=== PATIENT | male | born 2005 | race Caucasian/White ===

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

== ENCOUNTER 2024-06-13 09:50 | Emergency (ER) | payer BC, SELFPAY ==
[2024-06-13 09:53] VITALS: BP 119/63; PULSE 100; RESP 16; TEMP 36.4; O2SAT 100
[2024-06-13] MEDS: KETOROLAC 15 MG/ML VIAL (*BKC) IV PUSH (10:38)
[2024-06-13] MEDS: LACTATED RINGERS 1,000 ML 999 ML IV CONT (10:38)
[2024-06-13] MEDS: ONDANSETRON INJ 4 MG/2 ML VIAL IV PUSH (10:38)
[2024-06-13 10:53] LABS: Alanine Aminotransferase 13 U/L (6-50); Albumin Level 5.2 g/dL (3.5-5.1); Alkaline Phosphatase 63 U/L (38-126); Anion Gap 10 mmol/L (4-12); Aspartate Amino Transferase 19 U/L (17-59); Bilirubin,Total 1.2 mg/dL (0.2-1.3); Blood Urea Nitrogen 26 mg/dL (9-20); Calcium 10.1 mg/dL (8.4-10.2); Carbon Dioxide 22 mmol/L (22-30); Chloride 107 mmol/L (98-107); Estimated Glomerular Filt Rate > 60; Glucose 125 mg/dL (65-110); Lipase 32 U/L (23-300); Potassium 3.8 mmol/L (3.4-5.0); Sodium 139 mmol/L (137-145)
[2024-06-13] MEDS: diphenhydrAMINE HCl INJ 50 MG/ML VIAL 25 MG IV PUSH (11:07)
--- NOTE | 2024-06-13 11:12 | ED_ITS ---
HPI - Nausea/Vomiting/Diarrhea General Chief complaint: Nausea/Vomiting/Diarrhea Stated complaint: N/V/D, abd pain Time Seen by Provider: 06/13/24 10:21 Source: patient and RN notes reviewed Mode of arrival: ambulatory Limitations: no limitations History of Present Illness HPI Narrative: THis is a 19 year old male who presents for evaluation of nausea, vomiting, diarrhea and abdominal pain. He reports 2 days ago he developed fatigue, sore throat and body aches so he went to urgent care. He was diagnosed with covid at that time. He states he was feeling better but last night he developed vomiting, diarrhea and abdominal pain. He reports multiple episodes of bilious vomiting and watery nonbloody diarrhea. HE reports constant generalized abdominal pain. He had a fever 2 days ago. He denies sick contacts. MD elicited complaint: nausea, vomiting, diarrhea and abdominal pain Onset (ago): day(s) (1) Description of vomiting: bilious Description of diarrhea: watery Associated nausea: Yes Associated abdominal pain: Yes Location of pain: diffuse Pain consistency: constant Quality: cramping Exacerbating factors: none Relieving factors: none Related Data Allergies Allergy/AdvReac Type Severity Reaction Status Date / Time peanut Allergy Anaphylaxis Verified 06/13/24 09:52 Review of Systems 2 Review of Systems: All systems reviewed & are unremarkable except as noted in HPI and below Constitutional: Constitutional: Reports fatigue and Reports fever(s) ENT: Reports sore throat Respiratory: Respiratory: Denies cough and Denies dyspnea Gastrointestinal: Gastrointestinal: Reports diarrhea, Reports nausea and Reports vomiting PMFSH Past Medical History Medical History (Updated 06/13/24 @ 12:12 by Gladys Maynard MD) Patient denies medical problems Surgical History Surgical History (Updated 06/13/24 @ 11:16 by Gladys Maynard MD) No pertinent past surgical history Exam 2 Const: General: no acute distress and alert Nutritional Appearance: well nourished Orientation/consciousness: patient oriented x3 HENMT: Head: normal to inspection Eyes: EOM: EOMs intact bilaterally Resp: Effort & Inspection: normal respiratory effort Auscultation: clear to auscultation bilaterally Cardio: Rate: regular rate Rhythm: regular rhythm Heart sounds: no murmurs GI: GI Palp: Yes Soft to palpation, Yes Tenderness to palpation present (GI), No Guarding due to palpation present (GI), No Rigid due to palpation and No Hernia present Auscultation: normal bowel sounds Skin: General skin exam: normal color Rashes: no rashes Wounds: no wounds Neuro: General: patient oriented x3 and moves all extremities Cranial nerves: Yes Nystagmus not present Extrem: General: normal to inspection Psych: Mental Status: mental status grossly normal Affect: normal affect Attitude: cooperative Course Reevaluation(s) Reevaluation #1: I was called to bedside because patient developed hives to left arm at IV site after receiving zofran and toradol. PAtient denies itching or trouble breathing. Date: 06/13/24 Time: 11:16 Reevaluation #2: Patient states he feels better. He denies any abdominal pain so he declined CT understanding that without it I can not rule out appendicitis. Patient abdominal exam is normal now. He does not have any tenderness so I cancelled CT. He was given return precautions. Date: 06/13/24 Time: 12:11 Vital Signs Vital signs: Vital Signs Temperature 97.5 F L 06/13/24 09:53 Pulse Rate 100 06/13/24 09:53 Respiratory Rate 16 06/13/24 09:53 Blood Pressure 119/63 06/13/24 09:53 Pulse Oximetry 100 06/13/24 09:53 Oxygen Delivery Room Air 06/13/24 09:53 Temperature 97.8 F 06/13/24 12:21 Pulse Rate 84 06/13/24 12:21 Respiratory Rate 16 06/13/24 12:21 Blood Pressure 116/72 06/13/24 12:21 Pulse Oximetry 100 06/13/24 12:21 Oxygen Delivery Room Air 06/13/24 09:53 MDM - Nausea/Vomiting/Diarrhea Differential Diagnosis Differential diagnosis: Likely traveler's diarrhea, food poisoning, gastroenteritis and dehydration Lab Data Attestation: I reviewed the patient's lab results. 06/13/24 10:34 06/13/24 10:34 Labs: Lab Results 06/13/24 06/13/24 06/13/24 Range/Units 10:34 10:51 11:15 WBC 9.2 (4.5-10.0) K/mm3 RBC 5.17 (4.6-6.20) M/mm3 Hgb 15.9 (14.0-18.0) g/dL Hct 43.7 (42.0-52.0) % MCV 84.5 (80-100) fl MCH 30.8 (26-34) pg MCHC 36.4 H (32-36) g/dl RDW 12.5 (11.5-14.5) % Plt Count 237 (150-375) k/mm3 MPV 8.6 (7.4-10.4) fl Immature Gran % (Auto) 0.2 (0-0.5) % Neut % (Auto) 91.4 H (45.5-73.1) % Lymph % (Auto) 3.7 L (18.3-44.2) % [place] % (Auto) 4.2 (2.6-8.5) % Eos % (Auto) 0.3 (0-4.4) % Baso % (Auto) 0.2 (0.2-1.2) % Lymph # (Auto) 0.34 L (0.9-3.2) K/mm3 [place] # (Auto) 0.4 (0.1-0.6) K/mm3 Eos # (Auto) 0.0 (0-0.3) K/mm3 Baso # (Auto) 0.0 (0.0-0.1) K/mm3 Abs Immat Gran (auto) 0.02 (0.00-0.031) K/mm3 Absolute Neuts (auto) 8.4 H (1.3-6.7) K/mm3 Absolute Nucleated RBC 0.000 (0.0-0.012) K/mm3 Nucleated RBC % 0.0 (0.0-0.2) % Sodium 139 (137-145) mmol/L Potassium 3.8 (3.4-5.0) mmol/L Chloride 107 (98-107) mmol/L Carbon Dioxide 22 (22-30) mmol/L Anion Gap 10 (4-12) mmol/L BUN 26 H (9-20) mg/dL Creatinine 0.90 (0.7-1.3) mg/dL Estim Creat Clear Calc Not Reportable Estimated GFR > 60 (59 - ) Glucose 125 H (65-110) mg/dL Calcium 10.1 (8.4-10.2) mg/dL Total Bilirubin 1.2 (0.2-1.3) mg/dL AST 19 (17-59) U/L ALT 13 (6-50) U/L Alkaline Phosphatase 63 (38-126) U/L Total Protein 9.0 H (6.3-8.2) g/dL Albumin 5.2 H (3.5-5.1) g/dL Lipase 32 (23-300) U/L Urine Color Dark yellow (Yellow) Urine Appearance Clear (Clear) Urine pH 6.5 (5.0-9.0) Ur Specific Josephine 1.032 (1.001-1.035) Urine Protein 1+ H (Negative) mg/dL Urine Glucose (UA) Negative (Negative) mg/dL Urine Ketones 3+ H (Negative) mg/dL Ur Blood (Man) Negative (Negative) Urine Nitrate Negative (Negative) Urine Bilirubin Negative (Negative) Urine Urobilinogen 1.0 (<2.0) mg/dL Leukocyte Esterase Rfl Negative (Negative) JAGDEEP/UL Urine RBC 3-5 H (0-2) /hpf Urine WBC 0-5 (0-3) /hpf Ur Squamous Epith Cells None seen (Few) /hpf Urine Bacteria None seen /hpf Urine Casts 3-5 Influenza A (RT-PCR) Negative (Negative) Influenza B (RT-PCR) Negative (Negative) Discharge Plan Discharge Clinical Impression: Gastroenteritis, Dehydration Patient Disposition: Home, Self-Care Condition: Improved Instructions: Antibiotic Form, Gastroenteritis (ED) Additional Instructions: Stay hydrated. IF you developed bloody diarrhea, fever or right lower abdominal pain return to ER Patient Language: Lao Prescriptions: New ondansetron 4 mg tablet,disintegrating 4 mg PO Q8H PRN (Reason: nausea and vomiting) Qty: 20 0RF Follow-up/Referrals: PHYSICIAN,SALICYLIC ACID BLENDER [Primary Care Provider] - Gus Pride MD [Physician] -
[2024-06-13 11:25] LABS: Basophils Percent Auto 0.2 % (0.2-1.2); Eosinophils Percent Auto 0.3 % (0-4.4); Hematocrit 43.7 % (42.0-52.0); Hemoglobin 15.9 g/dL (14.0-18.0); Immature Granulocyte Absolute 0.02 K/mm3 (0.00-0.031); Immature Granulocyte Percent A 0.2 % (0-0.5); Lymphocytes Absolute Auto 0.34 K/mm3 (0.9-3.2); Lymphocytes Percent Auto 3.7 % (18.3-44.2); Mean Corpuscular HGB Conc 36.4 g/dl (32-36); Mean Corpuscular Hemoglobin 30.8 pg (26-34); Mean Corpuscular Volume 84.5 fl (80-100); Mean Platelet Volume 8.6 fl (7.4-10.4); Monocytes Absolute Auto 0.4 K/mm3 (0.1-0.6); Monocytes Percent Auto 4.2 % (2.6-8.5); Neutrophils Absolute Auto 8.4 K/mm3 (1.3-6.7); Neutrophils Percent Auto 91.4 % (45.5-73.1); Platelet Count Result 237 k/mm3 (150-375); Red Blood Count 5.17 M/mm3 (4.6-6.20); Red Cell Distribution Width 12.5 % (11.5-14.5); White Blood Count 9.2 K/mm3 (4.5-10.0)
[2024-06-13 11:45] LABS: Influenza A QL RT-PCR Negative (Negative); Influenza B QL RT-PCR Negative (Negative)
[2024-06-13 11:47] LABS: Add Urine Microscopic? YES; Appearance Urine Clear (Clear); Bacteria Urine None Seen /hpf; Bilirubin Urine Negative (Negative); Blood Urine Negative (Negative); Color Urine Dark Yellow (Yellow); Glucose Urine UA Negative (Negative); Ketones Urine 3+ mg/dL (Negative); Leukocyte Esterase Ur Negative LEU/UL (Negative); Nitrate Urine Negative (Negative); Protein Urine 1+ mg/dL (Negative); Specific Grav Ur 1.032 (1.001-1.035); Squamous Epithelial Cell Urine None Seen /hpf (Few); WBC Urine 0-5 /hpf (0-3); pH Urine 6.5 (5.0-9.0)
--- NOTE | 2024-06-13 11:55 | PC.NURSE ---
Per Sagar, photovoltaic testing technician, patient refusing CT scan.
[2024-06-13 12:21] VITALS: BP 116/72; PULSE 84; RESP 16; TEMP 36.6; O2SAT 100
--- OUTSIDE RECORDS SUMMARY | 2024-06-20 05:45 | XMS_ITS | Referral Summary ---
Author Organization [address] Address [address] [place] [address] Care Team Providers Care Seasoner Name Role Phone No, Physician Primary Care Provider [phone] Encounters Date Type Department Care Team Description 06/10/2024 12:30 PM PROFILE SAW OPERATOR Office Visit [facility] [place] [address] [place] [address] Rosa Nagy NP Suspected COVID-19 virus infection (Primary Dx); COVID from Last 3 Months Allergies No known active allergies Medications No known medications Active Problems No known active problems Social History Tobacco Use Types Packs/Day Years Used Date Smoking Tobacco: Never Assessed Sex and Gender Information Value Date Recorded Sex Assigned at Not on file Legal Sex Male 11:25 AM PROFILE SAW OPERATOR Gender Identity Not on file Sexual Orientation Not on file Last Filed Vital Signs Vital Sign Reading Time Taken Comments Blood Pressure 132/80 06/10/2024 12:30 PM PROFILE SAW OPERATOR Pulse 84 06/10/2024 12:30 PM PROFILE SAW OPERATOR Temperature 37.2 ??C (98.9 ??F) 06/10/2024 12:[address] Respiratory Rate 16 06/10/2024 12:30 PM PROFILE SAW OPERATOR Oxygen Saturation 99% 06/10/2024 12:30 PM PROFILE SAW OPERATOR Inhaled Oxygen Concentration - - Weight 61.7 kg (136 lb) 06/10/2024 12:30 PM PROFILE SAW OPERATOR Height 174 cm (5' 8.5 ) 06/10/2024 12:30 PM PROFILE SAW OPERATOR Body Mass Index 20.38 06/10/2024 12:30 PM PROFILE SAW OPERATOR Plan of Treatment Not on file Procedures Procedure Name Priority Date/Time Associated Diagnosis Comments POCT RAPID STREP Routine 06/10/2024 12:5 6 PM PROFILE SAW OPERATOR Suspected COVID-19 virus infection POCT INFLUENZA A/B Routine 06/10/2024 12 :56 PM PROFILE SAW OPERATOR Suspected COVID-19 virus infection COVID-19 POC Routine 06/10/2024 12:56 PM PROFILE SAW OPERATOR Suspected COVID-19 virus infection from Last 3 Months Results * (ABNORMAL) COVID-19 POC (06/10/2024 12:56 PM PROFILE SAW OPERATOR) Pathologist [facility] COVID-19 RNA PCR POC Positive( A) Not Detected, Negative, Undetected [facility] Nasal 06/10/2024 12:5 6 PM PROFILE SAW OPERATOR Rosa Nagy NP POINT OF CARE TEST ORDERAB LES Final Result Performing Organization Address City/State/[facility] Co de Phone Number [facility] [address] [place] [address] * POCT influenza A/B (06/10/2024 12:56 PM PROFILE SAW OPERATOR) Pathologist [facility] Rapid Influenza A Ag Negative Negative, Invalid Rapid Influenza B Ag Negative Negative, Invalid Nasal 06/10/2024 12:5 6 PM PROFILE SAW OPERATOR Rosa Nagy NP POINT OF CARE TEST ORDERAB LES Final Result * POCT rapid strep A (06/10/2024 12:56 PM PROFILE SAW OPERATOR) Rapid Strep A, POC Negative Negative Swab 06/10/2024 12:5 6 PM PROFILE SAW OPERATOR Rosa Nagy NP POINT OF CARE TEST ORDERAB LES Final Result from Last [address] [address] [place] [address] [facility] Care Teams Seasoner Relationship Specialty Start Date End Date No, Physician PCP - General 06/10/24
--- OUTSIDE RECORDS SUMMARY | 2024-06-20 05:45 | XMS_ITS | Clinical Summary ---
Author Organization [address] Address [address] [place] [address] Care Team Providers Care Financial Sales Advisor Name Role Phone No, Physician Primary Care Provider [phone] Allergies No known active allergies Medications No known medications Active Problems No known active problems Encounters Date Type Department Care Team Description 06/10/2024 12:30 PM HARDWOOD SAWYER Office Visit [facility] [place] [address] [place] [address] Rosa Nagy NP Suspected COVID-19 virus infection (Primary Dx); COVID from Last 3 Months Social History Tobacco Use Types Packs/Day Years Used Date Smoking Tobacco: Never Assessed Sex and Gender Information Value Date Recorded Sex Assigned at Not on file Legal Sex Male 11:25 AM HARDWOOD SAWYER Gender Identity Not on file Sexual Orientation Not on file Last Filed Vital Signs Vital Sign Reading Time Taken Comments Blood Pressure 132/80 06/10/2024 12:30 PM HARDWOOD SAWYER Pulse 84 06/10/2024 12:30 PM HARDWOOD SAWYER Temperature 37.2 ??C (98.9 ??F) 06/10/2024 12:[address] Respiratory Rate 16 06/10/2024 12:30 PM HARDWOOD SAWYER Oxygen Saturation 99% 06/10/2024 12:30 PM HARDWOOD SAWYER Inhaled Oxygen Concentration - - Weight 61.7 kg (136 lb) 06/10/2024 12:30 PM HARDWOOD SAWYER Height 174 cm (5' 8.5 ) 06/10/2024 12:30 PM HARDWOOD SAWYER Body Mass Index 20.38 06/10/2024 12:30 PM HARDWOOD SAWYER Plan of Treatment Health Maintenance Due Date Last Done Comments Depression Screening 2003 Hepatitis C Screening 2003 DTaP/Tdap/Td Vaccine (1 - Tdap) 2014 Varicella Vaccines (1 of 2 - 13+ 2-dose series) 2016 HPV Vaccines (1 - Male 3-dos e series) 2018 Meningococcal B Vaccine (1 o f 2 - Patient Seeks Protection) 2019 Hepatitis B Screening 2021 Regular Well Visit/Exam 18-64 2021 Influenza Vaccine (#1) 2024 04/16/2017 Meningococcal Vaccine Aged Out No todd garo eligible based on patient's age to complete this topic Pneumococcal vaccine <65 Aged Out No longer eligible based on patient's age to complete this topic Procedures Procedure Name Priority Date/Time Associated Diagnosis Comments POCT RAPID STREP Routine 06/10/2024 12:5 6 PM HARDWOOD SAWYER Suspected COVID-19 virus infection POCT INFLUENZA A/B Routine 06/10/2024 12 :56 PM HARDWOOD SAWYER Suspected COVID-19 virus infection COVID-19 POC Routine 06/10/2024 12:56 PM HARDWOOD SAWYER Suspected COVID-19 virus infection from Last 3 Months Results * (ABNORMAL) COVID-19 POC (06/10/2024 12:56 PM HARDWOOD SAWYER) [facility] COVID-19 RNA PCR POC Positive( A) Not Detected, Negative, Undetected [facility] Nasal 06/10/2024 12:5 6 PM HARDWOOD SAWYER Rosa Nagy NP POINT OF CARE TEST ORDERAB LES Final Result [facility] [address] [place] [address], [facility] * POCT influenza A/B (06/10/2024 12:56 PM HARDWOOD SAWYER) [facility] Rapid Influenza A Ag Negative Negative, Invalid Rapid Influenza B Ag Negative Negative, Invalid Nasal 06/10/2024 12:5 6 PM HARDWOOD SAWYER Rosa Nagy [employer]IO NEWS WRITER POINT OF CARE TEST ORDERAB LES Final Result * POCT rapid strep A (06/10/2024 12:56 PM HARDWOOD SAWYER) Rapid Strep A, POC Negative Negative Swab 06/10/2024 12:5 6 PM HARDWOOD SAWYER Rosa Nagy [employer]IO [employer] WRITER POINT OF CARE TEST ORDERAB LES Final Result from Last 3 Months Insurance [facility] Care Teams Financial Sales Advisor Relationship Specialty Start Date End Date No, Physician PCP - General 06/10/24
--- OUTSIDE RECORDS SUMMARY | 2024-06-20 05:45 | XMS_ITS | Encounter Summary ---
Author Organization [facility] Healthcare Address [address] [place] [address] Care Team Providers Care Roller Man Name Role Phone No, Physician Primary Care Provider [phone] Reason for Visit * Reason Comments Cold Symptoms Pt is her with a Sor e throat, Fever, Weakness, Fatigue, and Abdominal pain a couple days ago. Onset is three days, OTC ibuprofen, and mucinex. Encounter Details Date Type Department Care Team (Late st Contact Info) Description 06/10/2024 12:30 PM PREPARED FOODS ASSOCIATE Office Visit [facility] Medical Group [facility] [place] [employer] [address] [place] [id number] Rosa Nagy, FURNITURE FABRICATOR [address] [place] [address] Suspected COVID-19 virus infection (Primary Dx); COVID Social History Tobacco Use Types Packs/Day Years Used Date Smoking Tobacco: Never Assessed Sex and Gender Information Value Date Recorded Sex Assigned at Not on file Legal Sex Male 11:25 AM PREPARED FOODS ASSOCIATE Gender Identity Not on file Sexual Orientation Not on file documented as of this encounter Last Filed Vital Signs Vital Sign Reading Time Taken Comments Blood Pressure 132/80 06/10/2024 12:30 PM PREPARED FOODS ASSOCIATE Pulse 84 06/10/2024 12:30 PM PREPARED FOODS ASSOCIATE Temperature 37.2 ??C (98.9 ??F) 06/10/2024 12:[address] Respiratory Rate 16 06/10/2024 12:30 PM PREPARED FOODS ASSOCIATE Oxygen Saturation 99% 06/10/2024 12:30 PM PREPARED FOODS ASSOCIATE Inhaled Oxygen Concentration - - Weight 61.7 kg (136 lb) 06/10/2024 12:30 PM PREPARED FOODS ASSOCIATE Height 174 cm (5' 8.5 ) 06/10/2024 12:30 PM PREPARED FOODS ASSOCIATE Body Mass Index 20.38 06/10/2024 12:30 PM PREPARED FOODS ASSOCIATE documented in this encounter Patient Instructions * Patient Instructions* Rosa Nagy NP - 06/10/2024 12:30 PM PREPARED FOODS ASSOCIATE Thank you for allowing me to take care of you today. Diagnosis COVID. Test: Rapid strep and influenza test is negative. COVID test is positive. According to the CDC guidelines you need to isolate if you have a fever. Stop isolation once the fever is gone without having to use Tylenol or ibuprofen. If your symptoms are moderate please isolateuntil they become better. Please wear a mask while around others for 5 days. Home care includes rest, hydration, over the counter medications, warm saltwater gargles, hot tea with honey, humidifier/vaporizer, throat lozenges/cough drops, Vicks vapor rub, Mucinex, Flonase, Neti pot/saline rinses. Follow up with your primary provider in 2-3 days as needed. Red flags include worsening symptoms including pain, swelling, headache, dizziness, congestion, fever, shortness of breath, chest pain, nausea/vomiting, abdomen pain, back pain, muscle pain, decreased range of motion, numbness/tingling, weakness, fatigue. Follow up with your primary provider, this clinic, or if severe go to ER. ARED FOODS ASSOCIATE * Attachments The following attachments cannot be sent through Care Everywhere. * Viral Syndrome (AfterCare(R) Instructions(ER/ED)) (Setswana) documented in this encounter Progress Notes * Rosa Nagy NP - 06/10/2024 12:30 PM CST Images from the original note were not included. Subjective/Objective Patient ID: Roel Gomez is a 19 y.o. male. Chief Complaint Cold Symptoms (Pt is her with a Sore throat, Fever, Weakness, Fatigue, and Abdominal pain a couple days ago. Onset is three days, OTC ibuprofen, and mucinex./) Patient is a 19-year-old male [facility] chief complaint of sore throat, fever, weakness, fatigue, abdominal pain that started approximately 3 days ago. Patient has been taking ibuprofen and Mucinex. States he was exposed to COVID. Review of system: All systems reviewed and are negative or noncontributory for this patient's presentation today other than as stated in HPI. Physical Exam Vitals and nursing note reviewed. Constitutional: General: He is not in acute distress. Appearance: Normal appearance. He is normal weight. He is not ill-appearing, toxic-appearing or diaphoretic. HENT: Head: Normocephalic and atraumatic. Right Ear: Tympanic membrane, ear canal and external ear normal. There is no impacted cerumen. Left Ear: Tympanic membrane, ear canal and external ear normal. There is no impacted cerumen. Nose: Nose normal. No congestion or rhinorrhea. Mouth/Throat: Mouth: Mucous membranes are moist. Pharynx: Oropharynx is clear. No oropharyngeal exudate or posterior oropharyngeal erythema. Eyes: Conjunctiva/sclera: Conjunctivae normal. Pupils: Pupils are equal, round, and reactive to light. Pulmonary: Effort: Pulmonary effort is normal. Breath sounds: Normal breath sounds. No stridor. No wheezing, rhonchi or rales. Chest: Chest wall: No tenderness. Abdominal: General: There is no distension. Musculoskeletal: General: Normal range of motion. Cervical back: Normal range of motion and neck supple. Skin: General: Skin is warm and dry. Neurological: General: No focal deficit present. Mental Status: He is alert and oriented to person, place, and time. Mental status is at baseline. Psychiatric: Mood and Affect: Mood normal. Behavior: Behavior normal. Thought Content: Thought content normal. Judgment: Judgment normal. Vitals: 06/10/24 1230 BP: 132/80 BP Location: Right arm Patient Position: Sitting Pulse: 84 Resp: 16 Temp: 37.2 ??C (98.9 ??F) SpO2: 99% Weight: 61.7 kg (136 lb) Height: 174 cm (5' 8.5 ) Assessment/Plan Diagnoses and all orders for this visit: Suspected COVID-19 virus infection (Primary) - COVID-19 POC - POCT influenza A/B - POCT rapid strep A COVID Recent Results (from the past 4 hours) COVID-19 POC Collection Time: 06/10/24 12:56 PM Specimen: Nasal Result Value Ref Range COVID-19 RNA PCR POC Positive (A) Not Detected, Negative, Undetected POCT influenza A/B Collection Time: 06/10/24 12:56 PM Result Value Ref Range Rapid Influenza A Ag Negative Negative, Invalid Rapid Influenza B Ag Negative Negative, Invalid POCT rapid strep A Collection Time: 06/10/24 12:56 PM Result Value Ref Range Rapid Strep A, POC Negative Negative Diagnosis COVID. Patient instructions/education: Viral syndrome. Test: Rapid strep and influenza test is negative. COVID test is positive. According to the CDC guidelines you need to isolate if you have a fever. Stop isolation once the fever is gone without having to use Tylenol or ibuprofen. If your symptoms are moderate please isolateuntil they become better. Please wear a mask while around others for 5 days. Home care includes rest, hydration, over the counter medications, warm saltwater gargles, hot tea with honey, humidifier/vaporizer, throat lozenges/cough drops, Vicks vapor rub, Mucinex, Flonase, Neti pot/saline rinses. Follow up with your primary provider in 2-3 days as needed. Red flags include worsening symptoms including pain, swelling, headache, dizziness, congestion, fever, shortness of breath, chest pain, nausea/vomiting, abdomen pain, back pain, muscle pain, decreased range of motion, numbness/tingling, weakness, fatigue. Follow up with your primary provider, this clinic, or if severe go to ER. Procedures Disposition- Patient presents with body aches, fever, sore throat. Patient is nontoxic- appearing and in no acutedistress. Vitals signs are stable. Discussed point of care test results with patient, lab test, X-rays that may have been completed or ordered during clinic visit. Treatments completed while in [facility] include COVID, influenza, rapid strep test. Given the history and physical exam findings,presentation/diagnosis is COVID. The Differential diagnosis includes influenza, strep pharyngitis, URI. However, these differential diagnosis are less likely given the data, history and physical exam. Supportive care was discussed including rest, hydration, bwaw-evi-[id number] meds to help with symptom s. Discussed medications dosages, usage & potential side effects. Advised close follow up and return criteria/red flags were discussed. Risks and interactions reviewed with patient. Patient has been instructed to follow up w PCP or go to ER for any signs or symptoms that are of concern or worsening. Understanding of discharge instructions verbalized, and agrees with plan of care. The patient was given the opportunity to ask all questions and to have all questions answered. This note is dictated and transcribed by [employer]. Teacher Assistant variances may occur. Despite proofreading, typographical errors may occur. Rosa Nagy NP ARED FOODS ASSOCIATE documented in this encounter Plan of Treatment Not on file documented as of this encounter Procedures Procedure Name Priority Date/Time Associated Diagnosis Comments COVID-19 POC Routine 06/10/2024 12:56 PM PREPARED FOODS ASSOCIATE Suspected COVID-19 virus infection POCT INFLUENZA A/B Routine 06/10/2024 12 :56 PM PREPARED FOODS ASSOCIATE Suspected COVID-19 virus infection POCT RAPID STREP Routine 06/10/2024 12:5 6 PM PREPARED FOODS ASSOCIATE Suspected COVID-19 virus infection documented in this encounter Results * POCT rapid strep A (06/10/2024 12:56 PM PREPARED FOODS ASSOCIATE) Pathologist [facility] Rapid Strep A, POC Negative Negative Swab 06/10/2024 12:5 6 PM PREPARED FOODS ASSOCIATE Rosa Nagy NP POINT OF CARE TEST ORDERAB LES Final Result * POCT influenza A/B (06/10/2024 12:56 PM PREPARED FOODS ASSOCIATE) Pathologist [facility] Rapid Influenza A Ag Negative Negative, Invalid Rapid Influenza B Ag Negative Negative, Invalid Nasal 06/10/2024 12:5 6 PM PREPARED FOODS ASSOCIATE Rosa Nagy FURNITURE FABRICATOR POINT OF CARE TEST ORDERAB LES Final Result * (ABNORMAL) COVID-19 POC (06/10/2024 12:56 PM PREPARED FOODS ASSOCIATE) COVID-19 RNA PCR POC Positive( A) Not Detected, Negative, Undetected [facility] Nasal 06/10/2024 12:5 6 PM PREPARED FOODS ASSOCIATE us Rosa Nagy FURNITURE FABRICATOR POINT OF CARE TEST ORDERAB LES Final Result [facility] [address] [place] [address], [facility] documented in this encounter Visit Diagnoses Diagnosis Suspected COVID-19 virus infection- Primary COVID documented in this encounter Additional Health Concerns Infection Onset Date Last Indicated Resolved Time COVID: Suspected 06/10/2024 06/10/2024 06/10/2024 12:56 PM PREPARED FOODS ASSOCIATE COVID19 06/10/2024 06/10/2024 06/20/2024 3:05 AM PREPARED FOODS ASSOCIATE documented as of this encounter Care Teams Roller Man Relationship Specialty Start Date End Date No, Physician PCP - General 06/10/24 documented as of this encounter
--- OUTSIDE RECORDS SUMMARY | 2024-06-20 08:00 | XMS_ITS | Clinical Summary ---
Author Organization [address] Address [address] [place] [address] Care Team Providers Care Jukebox Checker Name Role Phone No, Physician Primary Care Provider [phone] Allergies No known active allergies Medications No known medications Active Problems No known active problems Encounters Date Type Department Care Team Description 06/10/2024 12:30 PM BENCH MOLDER APPRENTICE Office Visit [facility] Medical Group [facility] at [place] [address] [place] [address] Rosa Nagy NP Suspected COVID-19 virus infection (Primary Dx); COVID from Last 3 Months Social History Tobacco Use Types Packs/Day Years Used Date Smoking Tobacco: Never Assessed Sex and Gender Information Value Date Recorded Sex Assigned at Not on file Legal Sex Male 11:25 AM BENCH MOLDER APPRENTICE Gender Identity Not on file Sexual Orientation Not on file Last Filed Vital Signs Vital Sign Reading Time Taken Comments Blood Pressure 132/80 06/10/2024 12:30 PM BENCH MOLDER APPRENTICE Pulse 84 06/10/2024 12:30 PM BENCH MOLDER APPRENTICE Temperature 37.2 ??C (98.9 ??F) 06/10/2024 12:[address] Respiratory Rate 16 06/10/2024 12:30 PM BENCH MOLDER APPRENTICE Oxygen Saturation 99% 06/10/2024 12:30 PM BENCH MOLDER APPRENTICE Inhaled Oxygen Concentration - - Weight 61.7 kg (136 lb) 06/10/2024 12:30 PM BENCH MOLDER APPRENTICE Height 174 cm (5' 8.5 ) 06/10/2024 12:30 PM BENCH MOLDER APPRENTICE Body Mass Index 20.38 06/10/2024 12:30 PM BENCH MOLDER APPRENTICE Plan of Treatment Health Maintenance Due Date [...] RAPID STREP Routine 06/10/2024 12:5 6 PM BENCH MOLDER APPRENTICE Suspected COVID-19 virus infection POCT INFLUENZA A/B Routine 06/10/2024 12 :56 PM BENCH MOLDER APPRENTICE Suspected COVID-19 virus infection COVID-19 POC Routine 06/10/2024 12:56 PM BENCH MOLDER APPRENTICE Suspected COVID-19 virus infection from Last 3 Months Results * (ABNORMAL) COVID-19 POC (06/10/2024 12:56 PM BENCH MOLDER APPRENTICE) [facility] COVID-19 RNA PCR POC Positive( A) Not Detected, Negative, Undetected [facility] Nasal 06/10/2024 12:5 6 PM BENCH MOLDER APPRENTICE Rosa Nagy NP POINT OF CARE TEST ORDERAB LES Final Result [facility] [address] [place] [address], [id number] * POCT influenza A/B (06/10/2024 12:56 PM BENCH MOLDER APPRENTICE) [facility] Rapid Influenza A Ag Negative Negative, Invalid Rapid Influenza B Ag Negative Negative, Invalid Nasal 06/10/2024 12:5 6 PM BENCH MOLDER APPRENTICE Rosa Nagy SCOUT LEASER POINT OF CARE TEST ORDERAB LES Final Result * POCT rapid strep A (06/10/2024 12:56 PM BENCH MOLDER APPRENTICE) Rapid Strep A, POC Negative Negative Swab 06/10/2024 12:5 6 PM BENCH MOLDER APPRENTICE Rosa Nagy SCOUT LEASER POINT OF CARE TEST ORDERAB LES Final Result from Last 3 Months Insurance [facility] Care Teams Jukebox Checker Relationship Specialty Start Date End Date No, Physician PCP - General 06/10/24
--- OUTSIDE RECORDS SUMMARY | 2024-06-20 08:00 | XMS_ITS | Referral Summary ---
Author Organization [address] Address [address] [place] [address] Care Team Providers Care Wood Fence Installer Name Role Phone No, Physician Primary Care Provider [phone] Encounters Date Type Department Care Team Description 06/10/2024 12:30 PM PHYSICAL SCIENCE PROFESSOR Office Visit [facility] Medical Group [facility] at [place] [address] [place] [address] Rosa Nagy NP Suspected COVID-19 virus infection (Primary Dx); COVID from Last 3 Months Allergies No known active allergies Medications No known medications Active Problems No known active problems Social History Tobacco Use Types Packs/Day Years Used Date Smoking Tobacco: Never Assessed Sex and Gender Information Value Date Recorded Sex Assigned at Not on file Legal Sex Male 11:25 AM PHYSICAL SCIENCE PROFESSOR Gender Identity Not on file Sexual Orientation Not on file Last Filed Vital Signs Vital Sign Reading Time Taken Comments Blood Pressure 132/80 06/10/2024 12:30 PM PHYSICAL SCIENCE PROFESSOR Pulse 84 06/10/2024 12:30 PM PHYSICAL SCIENCE PROFESSOR Temperature 37.2 ??C (98.9 ??F) 06/10/2024 12:[address] Respiratory Rate 16 06/10/2024 12:30 PM PHYSICAL SCIENCE PROFESSOR Oxygen Saturation 99% 06/10/2024 12:30 PM PHYSICAL SCIENCE PROFESSOR Inhaled Oxygen Concentration - - Weight 61.7 kg (136 lb) 06/10/2024 12:30 PM PHYSICAL SCIENCE PROFESSOR Height 174 cm (5' 8.5 ) 06/10/2024 12:30 PM PHYSICAL SCIENCE PROFESSOR Body Mass Index 20.38 06/10/2024 12:30 PM PHYSICAL SCIENCE PROFESSOR Plan of Treatment Not on file Procedures Procedure Name Priority Date/Time Associated Diagnosis Comments POCT RAPID STREP Routine 06/10/2024 12:5 6 PM PHYSICAL SCIENCE PROFESSOR Suspected COVID-19 virus infection POCT INFLUENZA A/B Routine 06/10/2024 12 :56 PM PHYSICAL SCIENCE PROFESSOR Suspected COVID-19 virus infection COVID-19 POC Routine 06/10/2024 12:56 PM PHYSICAL SCIENCE PROFESSOR Suspected COVID-19 virus infection from Last 3 Months Results * (ABNORMAL) COVID-19 POC (06/10/2024 12:56 PM PHYSICAL SCIENCE PROFESSOR) Pathologist [facility] COVID-19 RNA PCR POC Positive( A) Not Detected, Negative, Undetected [facility] Nasal 06/10/2024 12:5 6 PM PHYSICAL SCIENCE PROFESSOR Rosa Nagy NP POINT OF CARE TEST ORDERAB LES Final Result Performing Organization Address City/State/[facility] Co de Phone Number [facility] [address] [place] [address] * POCT influenza A/B (06/10/2024 12:56 PM PHYSICAL SCIENCE PROFESSOR) Pathologist [facility] Rapid Influenza A Ag Negative Negative, Invalid Rapid Influenza B Ag Negative Negative, Invalid Nasal 06/10/2024 12:5 6 PM PHYSICAL SCIENCE PROFESSOR Rosa Nagy NP POINT OF CARE TEST ORDERAB LES Final Result * POCT rapid strep A (06/10/2024 12:56 PM PHYSICAL SCIENCE PROFESSOR) Rapid Strep A, POC Negative Negative Swab 06/10/2024 12:5 6 PM PHYSICAL SCIENCE PROFESSOR Rosa Nagy NP POINT OF CARE TEST ORDERAB LES Final Result from Last [address] [place] [address] [place] [address] [facility] Care Teams Wood Fence Installer Relationship Specialty Start Date End Date No, Physician PCP - General 06/10/24
--- OUTSIDE RECORDS SUMMARY | 2024-06-20 08:01 | XMS_ITS | Encounter Summary ---
Author Organization [facility] Healthcare Address [address] [place] [address] Care Team Providers Care Rotary Peel Oven Tender Name Role Phone No, Physician Primary Care Provider [phone] Reason for Visit * Reason Comments Cold Symptoms Pt is her with a Sor e throat, Fever, Weakness, Fatigue, and Abdominal pain a couple days ago. Onset is three days, OTC ibuprofen, and mucinex. Encounter Details Date Type Department Care Team (Late st Contact Info) Description 06/10/2024 12:30 PM ENVIRONMENTAL AIR SPECIALIST Office Visit [facility] Medical Group [facility] [place] [address] [place] [phone] Rosa Nagy, DIGESTER [address] [place] [address] Suspected COVID-19 virus infection (Primary Dx); COVID Social History Tobacco Use Types Packs/Day Years Used Date Smoking Tobacco: Never Assessed Sex and Gender Information Value Date Recorded Sex Assigned at Not on file Legal Sex Male 11:25 AM ENVIRONMENTAL AIR SPECIALIST Gender Identity Not on file Sexual Orientation Not on file documented as of this encounter Last Filed Vital Signs Vital Sign Reading Time Taken Comments Blood Pressure 132/80 06/10/2024 12:30 PM ENVIRONMENTAL AIR SPECIALIST Pulse 84 06/10/2024 12:30 PM ENVIRONMENTAL AIR SPECIALIST Temperature 37.2 ??C (98.9 ??F) 06/10/2024 12:[address] Respiratory Rate 16 06/10/2024 12:30 PM ENVIRONMENTAL AIR SPECIALIST Oxygen Saturation 99% 06/10/2024 12:30 PM ENVIRONMENTAL AIR SPECIALIST Inhaled Oxygen Concentration - - Weight 61.7 kg (136 lb) 06/10/2024 12:30 PM ENVIRONMENTAL AIR SPECIALIST Height 174 cm (5' 8.5 ) 06/10/2024 12:30 PM ENVIRONMENTAL AIR SPECIALIST Body Mass Index 20.38 06/10/2024 12:30 PM ENVIRONMENTAL AIR SPECIALIST documented in this encounter Patient Instructions * Patient Instructions* Rosa Nagy NP - 06/10/2024 12:30 PM ENVIRONMENTAL AIR SPECIALIST Thank you for allowing me to take [...] clinic, or if severe go to ER. RONMENTAL AIR SPECIALIST * Attachments The following attachments cannot be sent through Care Everywhere. * Viral Syndrome (AfterCare(R) Instructions(ER/ED)) (Belarusian) documented in this encounter Progress Notes * [...] Patient is a 19-year-old male presents to [facility] care chief complaint of sore throat, fever, [...] Supportive care was discussed including rest, hydration, [id number] meds to help with symptom s. Discussed [...] This note is dictated and transcribed by [employer]. Head Piece Assembler variances may occur. Despite proofreading, typographical errors may occur. Rosa Nagy NP RONMENTAL AIR SPECIALIST documented in this encounter Plan of Treatment Not on file documented as of this encounter Procedures Procedure Name Priority Date/Time Associated Diagnosis Comments COVID-19 POC Routine 06/10/2024 12:56 PM ENVIRONMENTAL AIR SPECIALIST Suspected COVID-19 virus infection POCT INFLUENZA A/B Routine 06/10/2024 12 :56 PM ENVIRONMENTAL AIR SPECIALIST Suspected COVID-19 virus infection POCT RAPID STREP Routine 06/10/2024 12:5 6 PM ENVIRONMENTAL AIR SPECIALIST Suspected COVID-19 virus infection documented in this encounter Results * POCT rapid strep A (06/10/2024 12:56 PM ENVIRONMENTAL AIR SPECIALIST) Pathologist [facility] Rapid Strep A, POC Negative Negative Swab 06/10/2024 12:5 6 PM ENVIRONMENTAL AIR SPECIALIST Rosa Nagy NP POINT OF CARE TEST ORDERAB LES Final Result * POCT influenza A/B (06/10/2024 12:56 PM ENVIRONMENTAL AIR SPECIALIST) Pathologist [facility] Rapid Influenza A Ag Negative Negative, Invalid Rapid Influenza B Ag Negative Negative, Invalid Nasal 06/10/2024 12:5 6 PM ENVIRONMENTAL AIR SPECIALIST Rosa Nagy DIGESTER POINT OF CARE TEST ORDERAB LES Final Result * (ABNORMAL) COVID-19 POC (06/10/2024 12:56 PM ENVIRONMENTAL AIR SPECIALIST) COVID-19 RNA PCR POC Positive( A) Not Detected, Negative, Undetected [facility] Nasal 06/10/2024 12:5 6 PM ENVIRONMENTAL AIR SPECIALIST us Rosa Nagy DIGESTER POINT OF CARE TEST ORDERAB LES Final Result [facility] [address] [place] [address], [facility] documented in this encounter Visit Diagnoses Diagnosis Suspected COVID-19 virus infection- Primary COVID documented in this encounter Additional Health Concerns Infection Onset Date Last Indicated Resolved Time COVID: Suspected 06/10/2024 06/10/2024 06/10/2024 12:56 PM ENVIRONMENTAL AIR SPECIALIST COVID19 06/10/2024 06/10/2024 06/20/2024 3:05 AM ENVIRONMENTAL AIR SPECIALIST documented as of this encounter Care Teams Rotary Peel Oven Tender Relationship Specialty Start Date End Date No, Physician PCP - General 06/10/24 documented as of this encounter
== END 2024-06-13 12:23 | disposition home or self-care (01) ==
PROVIDERS: Emergency Provider General Practice
DX: K52.9 Noninfective gastroenteritis and colitis, unspecified (principal); E86.0 Dehydration
CPT/HCPCS: 36415; 80053; 81001; 83690; 85025; 87502; 96361; 96374; 96375; 99284; J1200; J1885; J2405; J7120